=== PATIENT | female | born 1950 | race Caucasian/White ===

== ENCOUNTER 2018-12-05 12:46 | Outpatient (CLI) | payer MEDICARE ==
--- NOTE | 2018-12-05 13:16 | CT ---
CT Cervical Spine WO Con Indication: Concern for hardware failure of the cervical spine; reported lucent screw involving instr umentation of the cervical spine. COMPARISON: None. FINDINGS: Acute fracture/subluxation: None. Spinal alignment: There is slight anterolisthesis of C2 on C3 and C4-C5. There is slight retrolisthes is of C3 on C4. There is slight anterior translation of C7 on T1. Craniocervical junction: [id number] degenerative change. Vertebral body heights: Maintained. 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 There is an ACDF plate at C5-C6. Onl y 3 separate screws are seen within the ACDF plate. The left lower most ACDF screw hole does not contain a screw. No screw defect is seen within the left aspect of the C6 vertebra to suggest prior s crew placement. No displaced screw is seen within the prevertebral soft tissues. At C2-C3, there is no appreciable osseous central canal or neural foraminal narrowing. At C3-4, there is uncovertebral hypertrophy and facet joint degenerative changes inducing at least mo derate right and mild left osseous neural foraminal narrowing. At C4-5, there is severe facet joint degenerative change on the left. There is uncovertebral hypertro phy. There is at least mild bilateral osseous neural foraminal narrowing. At C5-6, there is a residual osteophyte complex inducing at least moderate osseous central canal narr owing and mild right osseous neural foraminal narrowing. At C6-7, there is no appreciable osseous central canal or neural foraminal narrowing. At C7-T1, there is no appreciable osseous central canal or neural foraminal narrowing. Lung apices: There is a calcified granuloma in the right upper lobe. There is scattered emphysema. IMPRESSION: Postsurgical change consistent with prior fusion of C5-C7. There is an ACDF plate at C5 and C6. No di splaced screw is grossly evident. Moderate osseous central canal narrowing at C5-6 due to a residual osteophyte complex. Multilevel oss eous neural foraminal narrowing as detailed above.
== END 2018-12-05 12:47 | disposition home or self-care (01) ==
LOC: TBSIIMAG 12:46
PROVIDERS: ATTEND Neurological Surgery
DX: T85.698A Other mechanical complication of other specified internal prosthetic devices, implants and grafts, initial encounter (principal); M48.02 Spinal stenosis, cervical region
CPT/HCPCS: 72125